=== PATIENT | female | born 1990 | race Asian ===

== ENCOUNTER 2017-05-17 02:00 | Inpatient (IN) | payer SELFPAY ==
[~2017-05-17] VITALS: Ht 167 cm; Wt 59.9 kg
[2017-05-17] MEDS ORDERED: LACTATED RINGERS 1,000 ML IV SCH (02:19)
[2017-05-17] MEDS ORDERED: NALBUPHINE HYDROCHLORIDE 10 MG/ML VIAL IVP PRN (02:20)
[2017-05-17] MEDS ORDERED: METHYLERGONOVINE 0.2 MG/ML AMP IM PRN (02:20)
[2017-05-17] MEDS ORDERED: PROMETHAZINE 25 MG/ML VIAL IVP PRN (02:20)
[2017-05-17] MEDS ORDERED: OXYTOCIN 10 UNITS/ML VIAL IM SCH (02:20)
[2017-05-17] MEDS ORDERED: CARBOPROST 250 MCG/ML AMP IM PRN (02:20)
[2017-05-17] MEDS ORDERED: OXYTOCIN 20 UNITS/LR PREMIX 1,000 ML IV PRN (02:20)
[2017-05-17] MEDS ORDERED: MISOPROSTOL 25 MCG TAB VG PRN (02:25)
[2017-05-17 03:03] LABS: BASOPHILS % (AUTO) 0.2 % (0.0-2.0); EOSINOPHILS # (AUTO) 0.2 K/uL (0-0.4); EOSINOPHILS % (AUTO) 2.2 % (0.0-4.0); HEMATOCRIT 37.2 % (36-48); HEMOGLOBIN 12.4 g/dL (12.0-16.0); LYMPHOCYTES # (AUTO) 1.2 K/uL (2.5-16.5); LYMPHOCYTES % (AUTO) 12.9 % (20.5-51.1); MEAN CORPUSCULAR HEMOGLOBIN 30 pg (27-31); MEAN CORPUSCULAR HGB CONC 33 g/dL (33-37); MEAN CORPUSCULAR VOLUME 91 fL (80-94); MONOCYTES # (AUTO) 0.5 K/uL (0.8-1.0); MONOCYTES % (AUTO) 5.7 % (1.7-9.3); PLATELET COUNT (AUTO) 134 K/uL (140-450); RED BLOOD CELL COUNT(AUTO) 4.07 MIL/uL (4.20-5.40); RED CELL DISTRIBUTION WIDTH 11.7 % (11.6-13.7); WHITE BLOOD COUNT (AUTO) 8.9 K/uL (4.8-10.8)
[2017-05-17 03:09] LABS: APPEARANCE,URINE CLEAR (CLEAR); BILIRUBIN,URINE NEGATIVE (NEGATIVE); BLOOD, URINE 1+ (NEGATIVE); COLOR,URINE YELLOW (YELLOW); LEUKOCYTE ESTERASE ,URINE NEGATIVE (NEGATIVE); NITRITE, URINE NEGATIVE (NEGATIVE); PROTEIN,URINE NEGATIVE (NEGATIVE); UGLUCOSE NEGATIVE (NEGATIVE); UROBILINOGEN,URINE 0.2 EU/dL (0.2 - 1)
[2017-05-17] MEDS ORDERED: OXYTOCIN 20 UNITS/LR PREMIX 1,000 ML IV ONE (03:14)
[2017-05-17 03:27] LABS: HIV RAPID SCREEN NON-REACTIVE (NON REACTIV)
[2017-05-17 03:37] LABS: BACTERIA,URINE 1+ /HPF (None Seen); RBC,URINE 0-5 (RARE) /HPF (0-5); SQUAMOUS EPITHELIAL CELL,UR 4-10 (MOD) /LPF (0-3 (FEW)); WBC,URINE 0-5 (RARE) /HPF (0-5)
[2017-05-17] MEDS ORDERED: PROMETHAZINE 25 MG/ML VIAL ONE (04:25)
[2017-05-17] MEDS ORDERED: NALBUPHINE HYDROCHLORIDE 10 MG/ML VIAL ONE (04:25)
[2017-05-17 04:26] VITALS: BP 119/79
[2017-05-17] MEDS ORDERED: ROPIVACAINE 0.2%/NS PREMIX 250 ML EPI ONE (05:10)
[2017-05-17] MEDS ORDERED: AMPICILLIN 2,000 MG in NACL 0.9% 100 ML IV SCH (09:00)
[2017-05-17] MEDS ORDERED: AMPICILLIN 2,000 MG VIAL ONE (09:09)
[2017-05-17 09:58] LABS: RAPID PLASMA REAGIN NON-REACTIVE (Non Reactiv)
[2017-05-17] MEDS ORDERED: NALOXONE 0.4 MG/ML VIAL ONE (10:25)
[2017-05-17] MEDS ORDERED: OXYTOCIN 10 UNITS/ML VIAL ONE (11:28)
[2017-05-17] MEDS ORDERED: BENZOCAINE/MENTHOL 20%-0.5% 60 GM CAN TP PRN (11:50)
[2017-05-17] MEDS ORDERED: TEMAZEPAM 15 MG CAP PO PRN (11:50)
[2017-05-17] MEDS ORDERED: SODIUM PHOSPHATE 118 ML ENEM RC PRN (11:50)
[2017-05-17] MEDS ORDERED: oxyCODONE/APAP 5/325 MG 1 TAB TAB PO PRN (11:50)
[2017-05-17] MEDS ORDERED: MEASLES, MUMPS, AND RUBELLA 1 VIAL SQVAC PRN (11:50)
[2017-05-17] MEDS ORDERED: WITCH HAZEL 40 PAD PACKAGE TP PRN (11:50)
[2017-05-17] MEDS: IBUPROFEN 800 MG TAB PO PRN (15:54)
[2017-05-17] MEDS: HYDROcodone/APAP 5/325 MG 1 TAB TAB PO PRN (19:54)
[2017-05-17] MEDS ORDERED: BETHANECHOL 25 MG TAB PO PRN (20:10)
[2017-05-17] MEDS ORDERED: DOCUSATE SOD/SENNA 50/8.6 MG 1 TAB PO SCH (21:00)
[2017-05-18] MEDS: HYDROcodone/APAP 5/325 MG 1 TAB TAB PO PRN ×3 (00:52→20:33)
[2017-05-18 06:31] LABS: HEMATOCRIT 32.5 % (36-48); HEMOGLOBIN 10.6 g/dL (12.0-16.0)
--- NOTE | 2017-05-18 06:56 | NUR ---
PATIENT HAS BEEN SCREENED AND CATEGORIZED LOW NUTRITION RISK. PATIENT WILL BE SEEN WITHIN 7 DAYS OF ADMISSION. 05/23/17 MAURA VILCHIS MS, RDN
[2017-05-18] MEDS: IBUPROFEN 800 MG TAB PO PRN (11:46)
[2017-05-19] MEDS: HYDROcodone/APAP 5/325 MG 1 TAB TAB PO PRN (03:44)
== END 2017-05-19 14:40 | disposition home or self-care (01) | DRG 775 ==
LOC: MLD 02:00 → MFCC 15:20
PROVIDERS: ADMIT Obstetrics & Gynecology; ATTEND Obstetrics & Gynecology
PROC: 10D07Z6 Extraction of Products of Conception, Vacuum, Via Natural or Artificial Opening (ICD-10-PCS; principal; 2017-05-17)
PROC: 0W8NXZZ Division of Female Perineum, External Approach (ICD-10-PCS; 2017-05-17)
PROC: 00HU33Z Insertion of Infusion Device into Spinal Canal, Percutaneous Approach (ICD-10-PCS; 2017-05-17)
PROC: 3E0R3CZ (ICD-10-PCS; 2017-05-17)
DX: O80 Encounter for full-term uncomplicated delivery (principal); Z37.0 Single live birth; Z3A.39 39 weeks gestation of pregnancy; Z28.21 Immunization not carried out because of patient refusal
CPT/HCPCS: 36415; 51702; 81001; 85018; 85025; 86592; 86886; 86900; 86901; J0290; J2300; J2310; J2550; J2590; J2795; J7120